=== PATIENT | female | born 1935 | race Caucasian/White ===

== ENCOUNTER 2018-05-29 19:46 | Inpatient (IN) | payer OTHER ==
[~2018-05-29] VITALS: Ht 157.5 cm; Wt 51.2 kg
[~2018-05-29 19:46] MED LIST: ABREVA2 GM TP; ACETAMINOPHEN-1 EAC1 PO; AKWA TEARS15 ML BOTH EYES; AMPICILLIN PO; ANTIVERT25 MG PO; ARICEPT10 MG PO; ARICEPT5 MG PO; ASPIR 8181 MG PO; ATIVAN0.5 MG PO; Ascorbic Acid,Ester- PO; BACTRIM,SEPT1 TABLET PO; BENEFIBER PA1 PACKET PO; BENEFIBER1 G2 PO; BRINTELLIX20 MG PO; BUSPAR10 MG PO; BUSPIRONE HCL10 MG PO; Bentyl PO; CALCIUM + D3 E1 EACH PO; CALCIUM 600 +1 EAC6 PO; CALCIUM 600 +1 EACH; CALTRATE 6001 TABLE1 PO; CALTRATE-600 W1 EAC1 PO; CEFUROXIME500 MG PO; CENTRUM SILVER1 EAC4 PO; CEPHALEXIN500 M2 PO; CIPRO500 MG PO; CITALOPRAM HBR20 MG PO; CLOBETASOL PROP60 G1 TP; COLACE100 MG PO; COUMADIN1 MG PO; CRANBERRY CONC500 MG PO; CRANBERRY PO; Creon 12 PO; DESYREL12.5 MG PO; DOCUSATE SODIU100 MG PO; DULCOLAX10 MG PR; Desyrel PO; ENDOCET 5-3251 EACH PO; ESTRING1 EACH VG; EXELON PATCH4.6 MG TD; FEOSOL325 MG PO; FLEET MINERAL133 ML PR; FLORASTOR250 MG PO; Folvite PO; HEPARIN SC; HEPARIN SO5000 UNITS SC; HEPARIN SQ; KEFLEX500 MG PO; LEVAQUIN500 MG PO; LEVAQUIN750 MG PO; LIALDA1.2 GM PO; LIDODERM 5% P1 PATCH PO; LIDODERM 5% P1 PATCH TD; LIPITOR80 MG PO; LISINOPRIL10 MG PO; LOPERAMIDE2 MG; LOPERAMIDE2 MG PO; MAALOX PO; MACROBID100 MG PO; MECLIZINE HCL25 M3 PO; MEGACE400 MG/10 PO; METAXALONE800 MG PO; METOPROLOL TART25 MG PO; MILK OF MAGNESI10 ML PO; MIRALAX17 GM PO; MULTIPLE VITAM1 EACH PO; MVI PO; Motrin PO; NITROFURANTOIN100 M3 PO; OCEAN NASAL 0.645 ML BOTH NARES; OMEPRAZOLE20 MG; ONDANSETRON4 MG/2 ML IV; Oscal 500 w/Vitamin PO; PAROXETINE HCL30 MG PO; PAXIL PO; PAXIL10 MG PO; PAXIL30 MG PO; PAXIL40 MG PO; POLYETHYLENE GL17 GM PO; PRILOSEC OTC20 MG PO; PRILOSEC20 MG PO; PRINIVIL10 MG PO; PRINIVIL20 MG PO; PROMETHAZINE HC25 M1 PO; Paxil PO; Protonix PO; REMERON15 M2 PO; REMERON30 M2 PO; ROBITUSSIN DM118 ML PO; SENNA PO; SENNA-TIME S T1 EACH PO; Senokot S,Pericolace PO; TOPROL XL25 MG PO; TOPROL XL6.25 MG PO; TRAMADOL HCL50 MG PO; TRAZODONE HCL50 MG PO; TYLENOL ARTHRI650 MG PO; TYLENOL REGULA325 MG PO; Tears Naturale II,Ar BOTH EYES; Theragran PO; Toprol XL PO; ULTRAM50 MG PO; VICODIN,LORT1 TABLET PO; VITAMIN D1000 UNIT PO; VYTORIN 10-401 EACH PO; VYTORIN 10/41 TABLET PO; ValTRex PO; Vicodin,Norco 5/325 PO; Vytorin 10/40 PO; XARELTO10 MG PO; XIFAXAN200 MG PO; ZENPEP DR 10,01 EACH PO; ZENPEP GT; ZESTRIL10 MG PO; ZESTRIL5 MG PO; ZOFRAN ODT4 MG PO; Zestril,Prinivil PO; oxyCODONE PO
[2018-05-29] MEDS ORDERED: ACETAMINOPHEN325 M1 PO (22:38)
[2018-05-29] MEDS ORDERED: RANITIDINE HCL150 MG PO (22:40)
[2018-05-29] MEDS ORDERED: BRINTELLIX20 MG PO (22:41)
[2018-05-29] MEDS ORDERED: DAILY VITE1 EAC1 PO (22:42)
[2018-05-29] MEDS ORDERED: REMERON30 M2 PO (22:42)
[2018-05-29] MEDS ORDERED: TRAMADOL HCL50 MG PO (22:42)
[2018-05-29] MEDS ORDERED: MILK OF MAGN PO (22:43)
[2018-05-29] MEDS ORDERED: FLEET ENEMA-AD118 ML PR (22:44)
[2018-05-29] MEDS ORDERED: DULCOLAX10 MG PR (22:44)
[2018-05-29] MEDS ORDERED: DEPAKOTE125 MG PO (22:45)
[2018-05-29] MEDS ORDERED: BENTYL20 MG PO (22:45)
[2018-05-29] MEDS ORDERED: COLACE100 MG PO (22:46)
[2018-05-29] MEDS ORDERED: BUSPAR5 MG PO (22:46)
[2018-05-29] MEDS ORDERED: CRANBERRY425 MG PO (22:46)
[2018-05-29 22:50] LABS: BASOPHIL (%) 0.2 % (0-1); EOSINOPHIL (%) 0.2 % (0-5); HEMATOCRIT 40.4 % (36.0-46.0); HEMOGLOBIN 13.6 G/DL (11.9-15.5); IMMATURE GRANULOCYTE (%) 0.6 % (0.0-0.7); LYMPHOCYTE (%) 9.6 % (15-42); LYMPHOCYTE COUNT 1.2 K/uL (1.0-2.8); MCH 31.9 PG (29.0-34.0); MCHC 33.7 G/DL (30.0-36.0); MCV 94.8 FL (83-99); MONOCYTE (%) 7.2 % (3-12); MONOCYTE COUNT 0.9 K/uL (0-0.8); NEUTROPHIL (%) 82.2 % (45-76); NEUTROPHIL COUNT 10.2 K/uL (1.8-6.4); PLATELET COUNT 161 K/uL (156-360); RBC DIS.WIDTH-CV 12.2 % (11.8-14.6); RBC DIS.WIDTH-SD 42.8 % (39-53); RED BLOOD COUNT 4.26 M/uL (3.80-5.20); WHITE BLOOD COUNT 12.5 K/uL (4.1-10.2)
[2018-05-29 22:57] LABS: CHLORIDE 106 mEq/L (99-109); POTASSIUM 4.3 mEq/L (3.7-5.4); SODIUM 144 mEq/L (136-147)
[2018-05-29 22:59] LABS: GLUCOSE 112 mg/dL (70-99)
[2018-05-29 23:03] LABS: CREATININE 0.8 mg/dL (0.6-1.3); GFR ESTIMATE (CALCULATED) > 59 mL/min/
[2018-05-29 23:04] LABS: UREA NITROGEN (BUN) 33 mg/dL (9-23)
[2018-05-30 00:01] LABS: TROP-I INTERPRETATION NEGATIVE; TROPONIN-I < 0.01 ng/mL (0.0-0.30)
[2018-05-30 01:46] VITALS: BP 161/88
[2018-05-30 04:32] VITALS: BP 188/91
[2018-05-30 07:30] LABS: HEMATOCRIT 41.8 % (36.0-46.0); HEMOGLOBIN 14.2 G/DL (11.9-15.5); MCV 92.9 FL (83-99)
[2018-05-30 07:35] VITALS: BP 173/107
[2018-05-30 11:29] VITALS: BP 202/107
[2018-05-30 11:56] LABS: BASOPHIL (%) 0.2 % (0-1); EOSINOPHIL (%) 0 % (0-5); HEMATOCRIT 44.5 % (36.0-46.0); HEMOGLOBIN 15.2 G/DL (11.9-15.5); IMMATURE GRANULOCYTE (%) 0.6 % (0.0-0.7); LYMPHOCYTE (%) 3.8 % (15-42); LYMPHOCYTE COUNT 0.7 K/uL (1.0-2.8); MCH 31.7 PG (29.0-34.0); MCHC 34.2 G/DL (30.0-36.0); MCV 92.9 FL (83-99); MONOCYTE (%) 7.4 % (3-12); MONOCYTE COUNT 1.3 K/uL (0-0.8); NEUTROPHIL COUNT 15.6 K/uL (1.8-6.4); PLATELET COUNT 162 K/uL (156-360); RBC DIS.WIDTH-CV 12.1 % (11.8-14.6); RBC DIS.WIDTH-SD 41.5 % (39-53); RED BLOOD COUNT 4.79 M/uL (3.80-5.20); WHITE BLOOD COUNT 17.7 K/uL (4.1-10.2)
[2018-05-30 12:21] LABS: CHLORIDE 101 MEQ/L (99-109); CREATININE 0.9 MG/DL (0.6-1.3); GFR ESTIMATE (CALCULATED) > 59 mL/min/; POTASSIUM 3.5 MEQ/L (3.7-5.4); SODIUM 139 MEQ/L (136-147); UREA NITROGEN (BUN) 18 mg/dL (9-23)
[2018-05-30 12:22] LABS: GLUCOSE 300 mg/dL (70-99)
[2018-05-30 15:01] LABS: APPEARANCE SL.HAZY ((CLEAR)); BILIRUBIN NEGATIVE; BLOOD MODERATE; COLOR YELLOW ((YELLOW)); GLUCOSE (STRIP) >=500; KETONES NEGATIVE; LEUKOCYTES MODERATE; NITRITE NEGATIVE; PROTEIN (STRIP) >=500; SPECIFIC GRAVITY 1.014 (1.000-1.030); UROBILINOGEN 0.2 MG/DL (0.2-1.0)
[2018-05-30 15:13] LABS: BACTERIA NONE SEEN /HPF; EPITHELIAL CELLS 3+ /HPF; MUCUS TRACE /LPF; RED BLOOD CELLS 20-30 /HPF (0-5); UCUL ADDED? YES; WHITE BLOOD CELLS 40-50 /HPF (0-5)
[2018-05-30 15:24] VITALS: BP 175/79
[2018-05-30 18:54] LABS: AMYLASE 15 IU/L (1-118)
[2018-05-30 23:25] VITALS: BP 133/88
[2018-05-31 07:03] LABS: BASOPHIL (%) 0.1 % (0-1); EOSINOPHIL (%) 0.1 % (0-5); HEMATOCRIT 36.1 % (36.0-46.0); IMMATURE GRANULOCYTE (%) 0.5 % (0.0-0.7); LYMPHOCYTE (%) 6.1 % (15-42); LYMPHOCYTE COUNT 0.9 K/uL (1.0-2.8); MCH 31.5 PG (29.0-34.0); MCHC 33.2 G/DL (30.0-36.0); MCV 94.8 FL (83-99); MONOCYTE (%) 8.1 % (3-12); MONOCYTE COUNT 1.1 K/uL (0-0.8); NEUTROPHIL (%) 85.1 % (45-76); NEUTROPHIL COUNT 11.8 K/uL (1.8-6.4); PLATELET COUNT 137 K/uL (156-360); RBC DIS.WIDTH-CV 12.6 % (11.8-14.6); RBC DIS.WIDTH-SD 43.9 % (39-53); WHITE BLOOD COUNT 13.9 K/uL (4.1-10.2)
[2018-05-31 07:06] LABS: RED BLOOD COUNT 3.81 M/uL (3.80-5.20)
[2018-05-31 07:21] LABS: ALBUMIN 3.6 G/DL (3.2-4.8); ALKALINE PHOSPHATASE 41 IU/L (3-129); ALT (GPT) 13 IU/L (3-49); AST (GOT) 19 IU/L (2-34); CHLORIDE 105 MEQ/L (99-109); CREATININE 1.2 MG/DL (0.6-1.3); GFR ESTIMATE (CALCULATED) 46 mL/min/; POTASSIUM 2.9 MEQ/L (3.7-5.4); SODIUM 143 MEQ/L (136-147); TOTAL BILIRUBIN 0.9 MG/DL (0.0-1.0); TOTAL PROTEIN 6.1 G/DL (6.4-8.3); UREA NITROGEN (BUN) 25 mg/dL (9-23)
[2018-05-31 07:22] LABS: GLUCOSE 109 mg/dL (70-99)
[2018-05-31 07:28] VITALS: BP 107/59
[2018-05-31 16:10] VITALS: BP 119/63
[2018-05-31 23:41] VITALS: BP 142/68
[2018-06-01 06:26] LABS: BASOPHIL (%) 0.2 % (0-1); EOSINOPHIL (%) 0.4 % (0-5); HEMATOCRIT 33.1 % (36.0-46.0); HEMOGLOBIN 11.1 G/DL (11.9-15.5); IMMATURE GRANULOCYTE (%) 0.8 % (0.0-0.7); LYMPHOCYTE (%) 10.1 % (15-42); MCH 31.5 PG (29.0-34.0); MCHC 33.5 G/DL (30.0-36.0); MONOCYTE (%) 8.3 % (3-12); MONOCYTE COUNT 0.8 K/uL (0-0.8); NEUTROPHIL (%) 80.2 % (45-76); NEUTROPHIL COUNT 7.9 K/uL (1.8-6.4); PLATELET COUNT 121 K/uL (156-360); RBC DIS.WIDTH-CV 12.6 % (11.8-14.6); RBC DIS.WIDTH-SD 43.5 % (39-53); RED BLOOD COUNT 3.52 M/uL (3.80-5.20); WHITE BLOOD COUNT 9.8 K/uL (4.1-10.2)
[2018-06-01 06:50] LABS: ALBUMIN 3.3 G/DL (3.2-4.8); ALKALINE PHOSPHATASE 39 IU/L (3-129); ALT (GPT) 16 IU/L (3-49); AST (GOT) 24 IU/L (2-34); CHLORIDE 112 MEQ/L (99-109); GFR ESTIMATE (CALCULATED) 56 mL/min/; GLUCOSE 113 mg/dL (70-99); POTASSIUM 3.2 MEQ/L (3.7-5.4); SODIUM 145 MEQ/L (136-147); TOTAL BILIRUBIN 0.9 MG/DL (0.0-1.0); TOTAL PROTEIN 5.8 G/DL (6.4-8.3); UREA NITROGEN (BUN) 10 mg/dL (9-23)
[2018-06-01 08:47] LABS: TROP-I INTERPRETATION NEGATIVE; TROPONIN-I 0.01 ng/mL (0.0-0.30)
[2018-06-01 09:08] VITALS: BP 185/88
[2018-06-01 15:36] VITALS: BP 138/84
[2018-06-01 20:16] VITALS: BP 162/78
[2018-06-01 23:58] VITALS: BP 173/78
[2018-06-02 06:39] LABS: BASOPHIL (%) 0.4 % (0-1); EOSINOPHIL COUNT 0.1 K/uL (0-0.3); HEMATOCRIT 35.6 % (36.0-46.0); HEMOGLOBIN 11.9 G/DL (11.9-15.5); LYMPHOCYTE (%) 15.4 % (15-42); LYMPHOCYTE COUNT 1.3 K/uL (1.0-2.8); MCH 31.2 PG (29.0-34.0); MCHC 33.4 G/DL (30.0-36.0); MCV 93.4 FL (83-99); MONOCYTE (%) 10.8 % (3-12); MONOCYTE COUNT 0.9 K/uL (0-0.8); NEUTROPHIL (%) 71.4 % (45-76); NEUTROPHIL COUNT 5.9 K/uL (1.8-6.4); PLATELET COUNT 138 K/uL (156-360); RBC DIS.WIDTH-CV 12.4 % (11.8-14.6); RBC DIS.WIDTH-SD 42.8 % (39-53); RED BLOOD COUNT 3.81 M/uL (3.80-5.20); WHITE BLOOD COUNT 8.3 K/uL (4.1-10.2)
[2018-06-02 07:05] LABS: CHLORIDE 109 MEQ/L (99-109); CREATININE 0.8 MG/DL (0.6-1.3); GFR ESTIMATE (CALCULATED) > 59 mL/min/; GLUCOSE 129 mg/dL (70-99); SODIUM 145 MEQ/L (136-147); UREA NITROGEN (BUN) 6 mg/dL (9-23)
[2018-06-02 07:06] LABS: POTASSIUM 3.9 MEQ/L (3.7-5.4)
[2018-06-02 07:56] VITALS: BP 167/89
[2018-06-02 16:08] VITALS: BP 168/91
[2018-06-02 21:20] VITALS: BP 170/79
[2018-06-03 00:16] VITALS: BP 128/74
[2018-06-03 03:43] VITALS: BP 120/62
[2018-06-03 06:21] LABS: BASOPHIL (%) 0.4 % (0-1); EOSINOPHIL (%) 0.6 % (0-5); EOSINOPHIL COUNT 0.1 K/uL (0-0.3); HEMATOCRIT 28.7 % (36.0-46.0); IMMATURE GRANULOCYTE (%) 1.3 % (0.0-0.7); LYMPHOCYTE (%) 15.5 % (15-42); LYMPHOCYTE COUNT 1.2 K/uL (1.0-2.8); MCH 31.4 PG (29.0-34.0); MCHC 33.4 G/DL (30.0-36.0); MCV 93.8 FL (83-99); MONOCYTE (%) 13.1 % (3-12); NEUTROPHIL (%) 69.1 % (45-76); NEUTROPHIL COUNT 5.5 K/uL (1.8-6.4); PLATELET COUNT 133 K/uL (156-360); RBC DIS.WIDTH-CV 12.4 % (11.8-14.6); RBC DIS.WIDTH-SD 42.5 % (39-53); RED BLOOD COUNT 3.06 M/uL (3.80-5.20); WHITE BLOOD COUNT 7.9 K/uL (4.1-10.2)
[2018-06-03 06:22] LABS: HEMOGLOBIN 9.6 G/DL (11.9-15.5)
[2018-06-03 06:34] LABS: CHLORIDE 106 MEQ/L (99-109); CREATININE 0.9 MG/DL (0.6-1.3); GFR ESTIMATE (CALCULATED) > 59 mL/min/; GLUCOSE 132 mg/dL (70-99); POTASSIUM 3.3 MEQ/L (3.7-5.4); SODIUM 139 MEQ/L (136-147); UREA NITROGEN (BUN) 8 mg/dL (9-23)
[2018-06-03 07:55] VITALS: BP 118/71
[2018-06-03 16:58] VITALS: BP 145/77
[2018-06-04 00:11] VITALS: BP 145/70
[2018-06-04 06:46] LABS: BASOPHIL (%) 0.2 % (0-1); EOSINOPHIL (%) 1.2 % (0-5); EOSINOPHIL COUNT 0.1 K/uL (0-0.3); HEMATOCRIT 26.7 % (36.0-46.0); HEMOGLOBIN 8.9 G/DL (11.9-15.5); IMMATURE GRANULOCYTE (%) 1.7 % (0.0-0.7); LYMPHOCYTE (%) 17.1 % (15-42); LYMPHOCYTE COUNT 1.6 K/uL (1.0-2.8); MCH 31.6 PG (29.0-34.0); MCHC 33.3 G/DL (30.0-36.0); MCV 94.7 FL (83-99); MONOCYTE (%) 15.7 % (3-12); MONOCYTE COUNT 1.5 K/uL (0-0.8); NEUTROPHIL (%) 64.1 % (45-76); NEUTROPHIL COUNT 5.9 K/uL (1.8-6.4); PLATELET COUNT 156 K/uL (156-360); RBC DIS.WIDTH-CV 12.6 % (11.8-14.6); RBC DIS.WIDTH-SD 43.4 % (39-53); RED BLOOD COUNT 2.82 M/uL (3.80-5.20); WHITE BLOOD COUNT 9.2 K/uL (4.1-10.2)
[2018-06-04 07:19] LABS: CHLORIDE 110 MEQ/L (99-109); CREATININE 0.8 MG/DL (0.6-1.3); GFR ESTIMATE (CALCULATED) > 59 mL/min/; GLUCOSE 120 mg/dL (70-99); POTASSIUM 3.7 MEQ/L (3.7-5.4); SODIUM 142 MEQ/L (136-147); UREA NITROGEN (BUN) 6 mg/dL (9-23)
[2018-06-04 07:43] VITALS: BP 130/90
[2018-06-04 11:24] VITALS: BP 179/78
[2018-06-04 16:30] VITALS: BP 140/68
[2018-06-04 23:58] VITALS: BP 143/65
[2018-06-05 06:42] LABS: BASOPHIL (%) 0.3 % (0-1); EOSINOPHIL COUNT 0.1 K/uL (0-0.3); HEMATOCRIT 25.9 % (36.0-46.0); HEMOGLOBIN 8.6 G/DL (11.9-15.5); IMMATURE GRANULOCYTE (%) 1.5 % (0.0-0.7); LYMPHOCYTE (%) 15.8 % (15-42); LYMPHOCYTE COUNT 1.6 K/uL (1.0-2.8); MCH 31.6 PG (29.0-34.0); MCHC 33.2 G/DL (30.0-36.0); MCV 95.2 FL (83-99); MONOCYTE (%) 14.8 % (3-12); MONOCYTE COUNT 1.5 K/uL (0-0.8); NEUTROPHIL (%) 66.6 % (45-76); NEUTROPHIL COUNT 6.8 K/uL (1.8-6.4); PLATELET COUNT 197 K/uL (156-360); RBC DIS.WIDTH-CV 12.9 % (11.8-14.6); RBC DIS.WIDTH-SD 44.1 % (39-53); RED BLOOD COUNT 2.72 M/uL (3.80-5.20); WHITE BLOOD COUNT 10.2 K/uL (4.1-10.2)
[2018-06-05 07:08] LABS: CHLORIDE 110 MEQ/L (99-109); CREATININE 0.8 MG/DL (0.6-1.3); GFR ESTIMATE (CALCULATED) > 59 mL/min/; GLUCOSE 113 mg/dL (70-99); SODIUM 141 MEQ/L (136-147); UREA NITROGEN (BUN) 7 mg/dL (9-23)
[2018-06-05 07:12] LABS: POTASSIUM 4.6 MEQ/L (3.7-5.4)
[2018-06-05 07:42] VITALS: BP 118/88
[2018-06-05 14:52] LABS: HEMATOCRIT 24.9 % (36.0-46.0); HEMOGLOBIN 8.4 G/DL (11.9-15.5); MCV 95.4 FL (83-99)
[2018-06-05 15:50] VITALS: BP 137/97
[2018-06-05 23:51] VITALS: BP 123/64
[2018-06-06 06:46] LABS: HEMATOCRIT 25.1 % (36.0-46.0); HEMOGLOBIN 8.4 G/DL (11.9-15.5); MCV 95.1 FL (83-99)
[2018-06-06 07:56] VITALS: BP 154/72
[2018-06-06 16:34] VITALS: BP 133/62
[2018-06-06 21:22] LABS: STOOL OCCULT BLD 1ST SPECIMEN POSITIVE
[2018-06-06 23:05] VITALS: BP 123/57
[2018-06-07 07:45] VITALS: BP 118/79
[2018-06-07 09:39] LABS: MCH 31.3 PG (29.0-34.0); MCHC 33.3 G/DL (30.0-36.0); MCV 93.8 FL (83-99); RBC DIS.WIDTH-CV 12.7 % (11.8-14.6); RBC DIS.WIDTH-SD 43.4 % (39-53); RED BLOOD COUNT 2.56 M/uL (3.80-5.20); WHITE BLOOD COUNT 7.1 K/uL (4.1-10.2)
[2018-06-07 09:40] LABS: PLATELET COUNT 347 K/uL (156-360)
[2018-06-07 16:33] VITALS: BP 137/63
[2018-06-08] VITALS (9 sets, daily range): BP systolic 121–153; BP diastolic 58–74
[2018-06-08 06:44] LABS: BASOPHIL (%) 0.6 % (0-1); BASOPHIL COUNT 0.1 K/uL (0-0.1); EOSINOPHIL (%) 2.2 % (0-5); EOSINOPHIL COUNT 0.2 K/uL (0-0.3); IMMATURE GRANULOCYTE (%) 2.6 % (0.0-0.7); LYMPHOCYTE (%) 19.3 % (15-42); LYMPHOCYTE COUNT 1.5 K/uL (1.0-2.8); MCH 30.3 PG (29.0-34.0); MCHC 33.3 G/DL (30.0-36.0); MCV 90.9 FL (83-99); MONOCYTE (%) 10.8 % (3-12); MONOCYTE COUNT 0.8 K/uL (0-0.8); NEUTROPHIL (%) 64.5 % (45-76); PLATELET COUNT 355 K/uL (156-360); RBC DIS.WIDTH-CV 14.5 % (11.8-14.6); RBC DIS.WIDTH-SD 48.7 % (39-53); WHITE BLOOD COUNT 7.7 K/uL (4.1-10.2)
[2018-06-08 06:49] LABS: INTER. NORMALIZED RATIO 1.2
[2018-06-08 06:54] LABS: RED BLOOD COUNT 3.63 M/uL (3.80-5.20)
[2018-06-08 07:06] LABS: CHLORIDE 106 MEQ/L (99-109); CREATININE 0.7 MG/DL (0.6-1.3); GFR ESTIMATE (CALCULATED) > 59 mL/min/; GLUCOSE 93 mg/dL (70-99); POTASSIUM 4.1 MEQ/L (3.7-5.4); SODIUM 141 MEQ/L (136-147); UREA NITROGEN (BUN) 9 mg/dL (9-23)
[2018-06-09 00:02] VITALS: BP 137/72
[2018-06-09 05:36] VITALS: BP 163/75
[2018-06-09 05:56] LABS: HEMATOCRIT 33.2 % (36.0-46.0); HEMOGLOBIN 11.3 G/DL (11.9-15.5); MCH 30.6 PG (29.0-34.0); RBC DIS.WIDTH-CV 14.7 % (11.8-14.6); RBC DIS.WIDTH-SD 47.9 % (39-53); RED BLOOD COUNT 3.69 M/uL (3.80-5.20); WHITE BLOOD COUNT 9.3 K/uL (4.1-10.2)
[2018-06-09 06:01] LABS: PLATELET COUNT 470 K/uL (156-360)
[2018-06-09 06:20] LABS: CHLORIDE 105 MEQ/L (99-109); CREATININE 0.7 MG/DL (0.6-1.3); GFR ESTIMATE (CALCULATED) > 59 mL/min/; GLUCOSE 91 mg/dL (70-99); POTASSIUM 3.7 MEQ/L (3.7-5.4); SODIUM 143 MEQ/L (136-147); UREA NITROGEN (BUN) 8 mg/dL (9-23)
[2018-06-09 07:33] VITALS: BP 145/96
[2018-06-09 11:25] VITALS: BP 141/74
[2018-06-09 15:50] LABS: HEMATOCRIT 32.9 % (36.0-46.0); HEMOGLOBIN 11.1 G/DL (11.9-15.5); MCH 30.5 PG (29.0-34.0); MCHC 33.7 G/DL (30.0-36.0); MCV 90.4 FL (83-99); PLATELET COUNT 487 K/uL (156-360); RBC DIS.WIDTH-CV 14.6 % (11.8-14.6); RBC DIS.WIDTH-SD 48.2 % (39-53); RED BLOOD COUNT 3.64 M/uL (3.80-5.20); WHITE BLOOD COUNT 8.9 K/uL (4.1-10.2)
[2018-06-09 23:48] VITALS: BP 147/70
[2018-06-10 04:18] LABS: HEMATOCRIT 32.9 % (36.0-46.0); HEMOGLOBIN 11.2 G/DL (11.9-15.5); MCV 91.1 FL (83-99); PLATELET COUNT 483 K/uL (156-360); RBC DIS.WIDTH-CV 14.5 % (11.8-14.6); RED BLOOD COUNT 3.61 M/uL (3.80-5.20); WHITE BLOOD COUNT 10.5 K/uL (4.1-10.2)
[2018-06-10 07:57] VITALS: BP 128/85
[2018-06-10 12:02] VITALS: BP 115/72
[2018-06-10 15:08] VITALS: BP 112/57
[2018-06-10 15:59] LABS: HEMATOCRIT 34.4 % (36.0-46.0); HEMOGLOBIN 11.2 G/DL (11.9-15.5); MCH 29.9 PG (29.0-34.0); MCHC 32.6 G/DL (30.0-36.0); PLATELET COUNT 514 K/uL (156-360); RBC DIS.WIDTH-CV 14.5 % (11.8-14.6); RBC DIS.WIDTH-SD 48.2 % (39-53); RED BLOOD COUNT 3.74 M/uL (3.80-5.20); WHITE BLOOD COUNT 10.7 K/uL (4.1-10.2)
[2018-06-10 19:56] VITALS: BP 123/63
[2018-06-10 23:42] VITALS: BP 132/67
[2018-06-11 03:12] VITALS: BP 135/60
[2018-06-11 06:00] LABS: HEMATOCRIT 35.1 % (36.0-46.0); HEMOGLOBIN 11.6 G/DL (11.9-15.5); MCH 30.2 PG (29.0-34.0); MCV 91.4 FL (83-99); PLATELET COUNT 561 K/uL (156-360); RBC DIS.WIDTH-CV 14.5 % (11.8-14.6); RBC DIS.WIDTH-SD 47.9 % (39-53); RED BLOOD COUNT 3.84 M/uL (3.80-5.20)
[2018-06-11 07:42] VITALS: BP 156/72
[2018-06-11] MEDS ORDERED: PROTONIX40 MG PO (09:08)
[2018-06-11] MEDS ORDERED: OXYCODONE HCL5 MG PO (09:08)
== END 2018-06-11 12:44 | DRG 956 ==
LOC: EME → EDBD 19:46 → EME 19:46 → 3EAST 23:50 → EDOF 23:50 → 3EAST 05-30 01:19
PROVIDERS: Internal Medicine; Nurse Practitioner Family; Orthopaedic Surgery Sports Medicine; Specialist
PROC: 0SRR0JA Replacement of Right Hip Joint, Femoral Surface with Synthetic Substitute, Uncemented, Open Approach (ICD-10-PCS; principal; 2018-06-02)
PROC: 0QS604Z Reposition Right Upper Femur with Internal Fixation Device, Open Approach (ICD-10-PCS; principal; 2018-06-02)
PROC: 30233N1 Transfusion of Nonautologous Red Blood Cells into Peripheral Vein, Percutaneous Approach (ICD-10-PCS; 2018-06-08)
PROC: 0DJD8ZZ Inspection of Lower Intestinal Tract, Via Natural or Artificial Opening Endoscopic (ICD-10-PCS; 2018-06-08)
PROC: 0DBN8ZX Excision of Sigmoid Colon, Via Natural or Artificial Opening Endoscopic, Diagnostic (ICD-10-PCS; 2018-06-08)
PROC: 0DJ08ZZ Inspection of Upper Intestinal Tract, Via Natural or Artificial Opening Endoscopic (ICD-10-PCS; 2018-06-08)
DX: S72.011A Unspecified intracapsular fracture of right femur, initial encounter for closed fracture (principal); S72.111A Displaced fracture of greater trochanter of right femur, initial encounter for closed fracture; S32.511A Fracture of superior rim of right pubis, initial encounter for closed fracture; W01.0XXA Fall on same level from slipping, tripping and stumbling without subsequent striking against object, initial encounter; Y92.129 Unspecified place in nursing home as the place of occurrence of the external cause; K29.71 Gastritis, unspecified, with bleeding; K29.81 Duodenitis with bleeding; K57.31 Diverticulosis of large intestine without perforation or abscess with bleeding; K94.19 Other complications of enterostomy; K52.89 Other specified noninfective gastroenteritis and colitis; K62.89 Other specified diseases of anus and rectum; E87.6 Hypokalemia; D64.9 Anemia, unspecified; I10 Essential (primary) hypertension; G30.9 Alzheimer's disease, unspecified; F02.80 Dementia in other diseases classified elsewhere, unspecified severity, without behavioral disturbance, psychotic disturbance, mood disturbance, and anxiety; Z66 Do not resuscitate; K59.00 Constipation, unspecified; R63.0 Anorexia; Z68.20 Body mass index [BMI] 20.0-20.9, adult; K58.1 Irritable bowel syndrome with constipation; R74.0 Nonspecific elevation of levels of transaminase and lactic acid dehydrogenase [LDH]; N39.0 Urinary tract infection, site not specified; E78.5 Hyperlipidemia, unspecified; M81.0 Age-related osteoporosis without current pathological fracture; G89.4 Chronic pain syndrome; R11.2 Nausea with vomiting, unspecified; K21.9 Gastro-esophageal reflux disease without esophagitis; K64.9 Unspecified hemorrhoids; M47.812 Spondylosis without myelopathy or radiculopathy, cervical region; J32.0 Chronic maxillary sinusitis; M19.90 Unspecified osteoarthritis, unspecified site; I73.00 Raynaud's syndrome without gangrene; F32.9 Major depressive disorder, single episode, unspecified; F41.9 Anxiety disorder, unspecified; F09 Unspecified mental disorder due to known physiological condition; Z87.891 Personal history of nicotine dependence; Z93.3 Colostomy status; Z86.718 Personal history of other venous thrombosis and embolism; Z86.010 Personal history of colon polyps; Z90.49 Acquired absence of other specified parts of digestive tract; Z91.81 History of falling
CPT/HCPCS: 70450; 71045; 72125; 72170; 73502; 74018; 74176; 80048; 80053; 81003; 82150; 82272; 82948; 83605; 84484; 85014; 85018; 85025; 85027; 85610; 85730; 86850; 86900; 86901; 86920; 87040; 87086; 88305; 93005; 94760; 94799; 99281; 99285; C9113; J0690; J1170; J1650; J1885; J2405; J2543; J2765; J3010; J3480; J7030; J7042; J7050; P9016